=== PATIENT | female | born 2000 | race Caucasian/White ===

== ENCOUNTER 2020-05-02 02:51 | Emergency (ER) | payer OTHER ==
[2020-05-02 03:12] VITALS: BMI 22.3
[2020-05-02] MEDS ORDERED: ACETAMINOPHEN 500 MG TABLET (FP) PO ONE (03:27)
--- NOTE | 2020-05-02 03:39 | PDOC ---
Attending Attestation - Resident Resident Name: Venu Landa - ED Attending Attestation I have performed the following: I have examined & evaluated the patient, The case was reviewed & discussed with the resident, I agree w/resident's findings & plan - HPI HPI: 05/02/20 03:38 Pt comes with dysuriaX 2 DAYS Pt has her menstrual cycle currently. PT HAS NO HX OF UTI. SHE HAS NO HX OF STDS AND SHE IS NOT WORRIED ABOUT STDs PT HAS TAKEN NOTHING FOR HER SYMPTOMS - Physicial Exam PE: 05/02/20 04:08 PT HAS MILD FLANK PAIN BILATERALLY PT HAS FEVER PT HAS NO RASHES PTHAS SLIGHT TACHYCARDIA NO ABD PAIN - Medical Decision Making 05/02/20 04:09 PT WILL BE TREATED WITH BACTRIM DS X 10 DAYS SHE WILL HAVE BASIC BLOOD TESTS TO MAKE SURE HER CBC AND CHEM ARE NORMAL Discharge - Discharge Information Problems reviewed: Yes Clinical Impression/Diagnosis: UTI (urinary tract infection) Condition: Good Disposition: HOME - Additional Discharge Information Prescriptions: Sulfamethoxazole/Trimethoprim [Bactrim Ds -] 1 tab PO BID #20 tablet - Follow up/Referral Referrals: Reema Grigsby MD [Primary Care Provider] - - Patient Discharge Instructions Additional Instructions: Discharge Instructions: You were seen in the emergency department for back pain and burning while peeing, and you were found to have an complicated infection of the urinary tract. Home Care: - You have been prescribed a short course of bactrim/ antibiotic. You are encouraged to finish the course of the antibiotic. - You may use over the counter pain medications such as ibuprofen (Motrin, Advil) 600mg every 6 hours as needed for pain. If you have continued pain, you may alternate this medication with acetaminophen (Tylenol) 650-1000mg. - Make sure you are drinking plenty of fluids. Follow Up: - You should follow up with your PCP. You should make an appointment within the next week, especially if your symptoms do not resolve over the next few days. - Seek immediate medical care if you have worsening of your symptoms, you have noticeable blood in your urine, you develop fevers to 101F, or you have any medical emergency. Print Language: SAMI - Post Discharge Activity
[2020-05-02] MEDS ORDERED: ACETAMINOPHEN 500 MG TABLET (FP) ONE (03:41)
--- NOTE | 2020-05-02 03:43 | PDOC ---
History of Present Illness - General Chief Complaint: Urinary Problem Stated Complaint: NAUSEA,BACK PAIN,PAINFUL URINATION Time Seen by Provider: 05/02/20 03:07 - History of Present Illness Initial Comments: 05/02/20 03:37 19 F with no PMH came to the ED with dysuria and backpain. She has UTI symptoms about two days ago, but today, she experienced back pain. Beside the dysuria, she also endorsed chill, nausea, period cramp. She denies hx of STI, kidney stones. Last UTI was last year, treated with bactrim. PMH: neg PSH: finger laceration Med: none Allergy: penicillins SS: denies alcohol, smoke, drugs. Sexually active with condom with one person. ROS: GENERAL/CONSTITUTIONAL: No fever . chills. No weakness. HEAD, EYES, EARS, NOSE AND THROAT: No change in vision. No ear pain or discharge. No sore throat. CARDIOVASCULAR: No chest pain or shortness of breath RESPIRATORY: No cough, wheezing, or hemoptysis. GASTROINTESTINAL: nausea, no vomiting, diarrhea or constipation. GENITOURINARY: dysuria, no increase frequency, or change in urination. denies hematuria MUSCULOSKELETAL: No joint or muscle swelling or pain. No neck or back pain. SKIN: No rash NEUROLOGIC: No headache, vertigo, loss of consciousness, or change in strength/sensation. ENDOCRINE: No increased thirst. No abnormal weight change HEMATOLOGIC/LYMPHATIC: No anemia, easy bleeding, or history of blood clots. ALLERGIC/IMMUNOLOGIC: No hives or skin allergy. PE GENERAL: Awake, alert, and fully oriented, in no acute distress HEAD: No signs of trauma, normocephalic, atraumatic EYES: PERRLA, EOMI, sclera anicteric, conjunctiva clear ENT: Auricles normal inspection, hearing grossly normal, nares patent, oropharynx clear without exudates. Moist mucosa NECK: Normal ROM, supple, no lymphadenopathy, JVD, or masses LUNGS: No distress, speaks full sentences, clear to auscultation bilaterally HEART: Regular rate and rhythm, normal S1 and S2, no murmurs, rubs or gallops, peripheral pulses normal and equal bilaterally. ABDOMEN: Soft, nontender, normoactive bowel sounds. No guarding, no rebound. No masses. Suprapubic pain, CVA tenderness b/l EXTREMITIES : Normal inspection, Normal range of motion, no edema. No clubbing or cyanosis. NEUROLOGICAL: Cranial nerves II through XII grossly intact. Normal speech, normal gait, no focal sensorimotor deficits SKIN: Warm, Dry, normal turgor, no rashes or lesions noted Past History - Medical History Allergies/Adverse Reactions: Allergies Allergy/AdvReac Type Severity Reaction Status Date / Time Penicillins Allergy Verified 05/02/20 03:02 Home Medications: Ambulatory Orders Sulfamethoxazole/Trimethoprim [Bactrim Ds -] 1 tab PO BID #20 tablet 05/02/20 - Psycho-Social/Smoking History Smoking History: Never smoked Information on smoking cessation initiated: No - Substance Abuse Hx (Audit-C & DAST Scrn) How often the patient has a drink containing alcohol: Monthly or less Score: In Men: 4 or > Positive; In Women: 3 or > Positive: 1 Screen Result (Pos requires Nsg. Audit-10AR): Negative In the last yr the pt used illegal drug/Rx for NonMed reason: No Score: Yes response is considered Positive: 0 Screen Result (Positive result requires Nsg. DAST-10): Negative *Physical Exam - Vital Signs Last Vital Signs Temp Pulse Resp BP Pulse Ox 98.9 F 107 H 20 113/76 100 05/02/20 02:55 05/02/20 02:55 05/02/20 02:55 05/02/20 02:55 05/02/20 02:55 ED Treatment Course - LABORATORY CBC & Chemistry Diagram: 05/02/20 04:10 05/02/20 04:10 Medical Decision Making - Medical Decision Making 05/02/20 03:43 Ms. Sin 19 F with no PMH came here for dysuria and backpain. UTI symptoms: dysuria + CVA tenderness b/l Plan: UA/UC Tylenol for pain hCG for rule out 05/02/20 04:49 CBC is normal, hCG is negative UA revealed 3+ blood, 3+ leukoeasterase Might need to do a renal U/S. CMP is pending, need the BUN/Cr function to further assess problems/treatment plans. Discharge - Discharge Information Problems reviewed: Yes Clinical Impression/Diagnosis: UTI (urinary tract infection) Condition: Good - Admission No - Additional Discharge Information Prescriptions: Sulfamethoxazole/Trimethoprim [Bactrim Ds -] 1 tab PO BID #20 tablet - Follow up/Referral Referrals: Reema Grigsby MD [Primary Care Provider] - - Patient Discharge Instructions Additional Instructions: Discharge Instructions: You were seen in the emergency department for back pain and burning while pe eing, and you were found to have an complicated infection of the urinary tract. Home Care: - You have been prescribed a short course of bactrim/ antibiotic. You are encouraged to finish the course of the antibiotic. - You may use over the counter pain medications such as ibuprofen (Motrin, Advil) 600mg every 6 hours as needed for pain. If you have continued pain, you may alternate this medication with acetaminophen (Tylenol) 650-1000mg. - Make sure you are drinking plenty of fluids. Follow Up: - You should follow up with your PCP. You should make an appointment within the next week, especially if your symptoms do not resolve over the next few days. - Seek immediate medical care if you have worsening of your symptoms, you have noticeable blood in your urine, you develop fevers to 101F, or you have any medical emergency. Print Language: CANADIAN - Post Discharge Activity
[2020-05-02 03:54] LABS: EPI CELLS >36 /uL (0-25.1); HYALINE CASTS 5 /uL (0-3.1); PH,URINE 7.5 (5.0-8.0); URINE APPEARANCE CLEAR; URINE BACTERIA 315 /uL (0-1359); URINE BILIRUBIN NEGATIVE (NEGATIVE); URINE COLOR YELLOW; URINE GLUCOSE (UA) NEGATIVE (NEGATIVE); URINE KETONE NEGATIVE (NEGATIVE); URINE LEUK ESTERASE 3+ (NEGATIVE); URINE NITRITE NEGATIVE (NEGATIVE); URINE PROTEIN NEGATIVE (NEGATIVE); URINE RBC 16 /uL (0-23.9); URINE UROBILINOGEN 0.2 mg/dL (0.2-1.0); URINE WBC 38 /uL (0-25.8)
[2020-05-02] MEDS ORDERED: SULFAMETHOXAZOLE/TRIMETHOPRIM 800MG/160MG D.S. TABLET PO ONE (03:56)
[2020-05-02 04:36] LABS: BASO % 0.5 % (0-2.0); EOS % 0.9 % (0-4.5); HEMOGLOBIN 12.4 GM/dL (10.7-15.3); LYMPH % 10.6 % (8-40); MCH 30.7 pg (25.7-33.7); MCHC 33.6 g/dl (32.0-36.0); MEAN CELL VOLUME 91.4 fl (80-96); MEAN PLT VOLUME 10.4 fl (7.5-11.1); MONO % 6.9 % (3.8-10.2); NEUT % 81.1 % (42.8-82.8); PLATELET COUNT 154 K/MM3 (134-434); RBC 4.05 M/mm3 (3.60-5.2); RDW 13.2 % (11.6-15.6); WHITE BLOOD COUNT 10.4 K/mm3 (4.0-10.0)
[2020-05-02 04:55] LABS: BILIRUBIN,TOTAL 0.4 mg/dL (0.2-1); BLOOD UREA NITROGEN 9.8 mg/dL (7-18); CALCIUM 8.9 mg/dL (8.5-10.1); CREATININE 0.9 mg/dL (0.55-1.3); POTASSIUM 4.2 mmol/L (3.5-5.1); TOT PROT 7.1 g/dl (6.4-8.2)
[2020-05-02] MEDS ORDERED: SULFAMETHOXAZOLE/TRIMETHOPRIM 800MG/160MG D.S. TABLET ONE (05:05)
[2020-05-02 05:19] LABS: YEAST NEGATIVE (NEGATIVE)
[2020-05-02 05:27] VITALS: BP 112/73; PULSE 87; TEMP 98.6
== END 2020-05-02 05:26 | disposition home or self-care (01) ==
LOC: JER 02:51
DX: N39.0 Urinary tract infection, site not specified (principal)
CPT/HCPCS: 36415; 80053; 81003; 84703; 85025; 87086; 87186; 99283-25